=== PATIENT | male | born 1960 | race American Indian/Alaskan Native ===

== ENCOUNTER 2018-10-03 05:54 | Day surgery (SDC) | payer OTHER ==
[2018-10-03 06:45] VITALS: BMI 26.6
--- NOTE | 2018-10-03 07:59 | CP.SDSHP ---
Same Day Surgery H & P - History Proposed Procedure: egd Pre-Op Diagnosis: epigastric pain. heartburn. h/o PUD - Previous Medical/Surgical History Cardiac: Hypertension, Other (hyperlipidemia, Peptic ulcer disease) Previous Surgical History: left Ing Hernia - Allergies Allergies: Allergies No Known Allergies Allergy (Verified 07/10/16 07:42) - Physical Exam Vital Signs: Vital Signs 10/03/18 06:47 Temperature 97.3 F L Pulse Rate 60 Respiratory 19 Rate Blood Pressure 143/87 O2 Sat by Pulse 100 Oximetry Mental Status: Alert & Oriented x3 Neuro: WNL Heart: WNL Lungs: WNL GI: WNL - Impression Impression: epigstric pain. heartburn. h/o PUD Pt. Evaluated Today:Candidate for Anesthesia & Procedure: Yes - Date & Time Date: 10/03/18 Time: 07:59 Short Stay Discharge - Short Stay Discharge Admitting Diagnosis/Reason for Visit: EPIGASTRIC PAIN, GASTROINTESTINAL HEMORRHAGE, UNSP Disposition: HOME/ ROUTINE
[2018-10-03] MEDS ORDERED: Propofol 10 mg/ml Inj (20 ML) ONE (08:03)
[2018-10-03] MEDS ORDERED: Pantoprazole 40 mg EC Tab PO ONE (08:15)
[2018-10-03 08:25] VITALS: TEMP 97.7
[2018-10-03 08:49] VITALS: RESP 18; O2SAT 99
[2018-10-03 09:09] VITALS: BP 141/89; PULSE 68
== END 2018-10-03 09:05 | disposition home or self-care (01) ==
LOC: C.ENDO 05:54
PROVIDERS: ATTEND Internal Medicine Gastroenterology
DX: R10.13 Epigastric pain (principal); K92.2 Gastrointestinal hemorrhage, unspecified; Z87.11 Personal history of peptic ulcer disease; K44.9 Diaphragmatic hernia without obstruction or gangrene; K25.9 Gastric ulcer, unspecified as acute or chronic, without hemorrhage or perforation; K29.70 Gastritis, unspecified, without bleeding
CPT/HCPCS: 43239; 88305; 88312; 88342; J2001; J2704